=== PATIENT | male | born 1940 | race Caucasian/White ===

== ENCOUNTER 2017-05-20 08:17 | Day surgery (SDC) | payer MEDICARE ==
[~2017-05-20] VITALS: Ht 177.8 cm; Wt 85.3 kg
[2017-05-20] MEDS ORDERED: HYDROCHLOROTH12.5 MG PO (09:22)
[2017-05-20] MEDS ORDERED: LISINOPRIL2.5 MG PO (09:22)
== END 2017-05-20 11:21 | disposition home or self-care (01) ==
LOC: OPS 08:17 → DSVR 08:17 → DS 09:45 → OPS 11:21
PROVIDERS: Ophthalmology
PROC: 08RJ3JZ Replacement of Right Lens with Synthetic Substitute, Percutaneous Approach (ICD-10-PCS; principal; 2017-05-20 09:45)
DX: H25.11 Age-related nuclear cataract, right eye (principal); I10 Essential (primary) hypertension; M19.90 Unspecified osteoarthritis, unspecified site; Z87.891 Personal history of nicotine dependence; Z79.899 Other long term (current) drug therapy
CPT/HCPCS: J3301

== ENCOUNTER 2018-01-12 07:00 | Day surgery (SDC) | payer MEDICARE ==
[~2018-01-12] VITALS: Ht 177.8 cm; Wt 86.2 kg
[~2018-01-12 07:00] MED LIST: ASPIRIN325 MG PO; COD LIVER OIL1 EAC1 PO; DAILY VITE1 EACH PO; GARLIC1 EAC1 PO; HYDROCHLOROTH12.5 MG PO; LISINOPRIL2.5 MG PO; VITAMIN B-1100 M1 PO; VITAMIN B122500 MCG PO; VITAMIN E100 UNIT PO
--- NOTE | 2018-01-12 10:07 | NUR ---
PT RESTING IN BED-ALERT, ORIENTED AND SUPPORTED BY HIS SON. PT HAS HAD THIS SURGERY BEFORE. SEEMS PRETTY COMFORTABLE WITH TODAY. READY FOR [facility] TO LEAVE. EXTENDED A BLESSING, PT THANKED ME. WILL FOLLOW NEEDED
--- NOTE | 2018-01-12 11:18 | NUR ---
01/12/18 1118 Lissy Allen 1100 PT ARRIVED AWAKE AND TALKING. RESP EVEN AND UNLABORED. PT DENIES NAUSEA AND PAIN. VSS. 1117 PLAN OF CARE DISCUSSED WITH PT.
--- NOTE | 2018-01-13 07:18 | OR ---
[facility] [address], [place] [address] Signed DATE OF OPERATION: 01/12/2018 SURGEON: Jae Hernandez MD PREOPERATIVE DIAGNOSIS: Carpal tunnel syndrome right. POSTOPERATIVE DIAGNOSIS: Carpal tunnel syndrome right. PROCEDURE: Carpal tunnel release, right. ANESTHESIA: Rola block. SPECIMENS AND COMPLICATIONS: There were no specimens, or complications. TOURNIQUET TIME: Was about 25 minutes. WHAT WAS DONE: The patient was taken to the operating room. After anesthesia was induced and airway supported, the patient's right upper extremity was positioned, prepped, and draped in the routine sterile fashion. A volar incision was made beginning at the distal wrist flexion crease extending distally for about 2 cm in line with the anterior mid axial line of the 4th ray. Skin was divided sharply. Subcutaneous tissue was bluntly spread. The transverse volar carpal ligament was then divided with a tip of a #15 blade. A Ragnell retractor was placed under the distal flap and used to release the rest of the nerve under direct vision. We then reversed the Ragnell, put it into the proximal flap and completely decompressed the median nerve, which was seen to be fairly severely compromised under the proximal edge of the transverse volar carpal ligament. The wound was gently irrigated, closed in standard fashion. Sterile dressing applied. The patient was awakened and taken to recovery room where he arrived in stable condition. Counts were correct and antibiotic protocols were followed. Electronically Signed By: JAE HERNANDEZ MD 01/13/18 0718 PATIENT NAME: YANI DENNIS OPERATIVE REPORT DATE OF : 38 REPORT #: [id number] PHYSICIAN: JAE HERNANDEZ MD PCP: CLAIR SRINIVASAN MD REPORT IS CONFIDENTIAL AND NOT TO BE RELEASED WITHOUT AUTHORIZATION [address] [place], [place] [address] Signed Jae Hernandez MD WFB/MODL /[id number] Copies: ~ Electronically Signed By: JAE HERNANDEZ MD 01/13/18 0718 PATIENT NAME: YANI DENNIS OPERATIVE REPORT DATE OF : 38 REPORT #: [id number] PHYSICIAN: JAE HERNANDEZ MD PCP: CLAIR SRINIVASAN MD REPORT IS CONFIDENTIAL AND NOT TO BE RELEASED WITHOUT AUTHORIZATION
== END 2018-01-12 11:55 | disposition home or self-care (01) ==
LOC: DS 07:00 → OPS 07:00 → DS 09:15 → OPS 11:55
PROVIDERS: Orthopaedic Surgery
PROC: 01N50ZZ Release Median Nerve, Open Approach (ICD-10-PCS; principal; 2018-01-12 09:15)
DX: G56.01 Carpal tunnel syndrome, right upper limb (principal); Z79.82 Long term (current) use of aspirin; Z79.899 Other long term (current) drug therapy; Z87.891 Personal history of nicotine dependence
CPT/HCPCS: J0690; J2704; J3010; J7120